=== PATIENT | female | born 1995 | race Two or more races ===

== ENCOUNTER 2022-09-13 08:06 | Outpatient (CLI) | payer OTHER | END 2022-09-13 09:15 | disposition home or self-care (01) | LOC: PRENATAL 08:06 | PROVIDERS: ATTEND Obstetrics & Gynecology Maternal & Fetal Medicine | DX: O36.80X0 Pregnancy with inconclusive fetal viability, not applicable or unspecified (principal); Z88.8 Allergy status to other drugs, medicaments and biological substances; Z3A.09 9 weeks gestation of pregnancy ==

== ENCOUNTER 2022-10-04 14:07 | Outpatient (CLI) | payer OTHER | END 2022-10-04 15:15 | disposition home or self-care (01) | LOC: PRENATAL 14:07 | PROVIDERS: ATTEND Obstetrics & Gynecology Maternal & Fetal Medicine | DX: O36.80X0 Pregnancy with inconclusive fetal viability, not applicable or unspecified (principal); Z3A.12 12 weeks gestation of pregnancy ==

== ENCOUNTER 2022-11-29 08:05 | Outpatient (CLI) | payer OTHER | END 2022-11-29 09:45 | disposition home or self-care (01) | LOC: PRENATAL 08:05 | PROVIDERS: ATTEND Obstetrics & Gynecology Maternal & Fetal Medicine | DX: O35.9XX0 Maternal care for (suspected) fetal abnormality and damage, unspecified, not applicable or unspecified (principal); O44.00 Complete placenta previa NOS or without hemorrhage, unspecified trimester; Z3A.20 20 weeks gestation of pregnancy ==

== ENCOUNTER 2022-12-03 13:13 | Emergency (ER) | payer OTHER ==
[~2022-12-03] VITALS: Ht 149.9 cm; Wt 55.3 kg
[2022-12-03] MEDS ORDERED: FOLIC ACID1 MG (13:23)
[2022-12-03] MEDS ORDERED: ECOTRIN81 MG (13:23)
[2022-12-03] MEDS ORDERED: PLAQUENIL (13:25)
[2022-12-03] MEDS ORDERED: PRENA1 TRUE CO1 EACH (13:26)
== END 2022-12-03 19:10 | disposition home or self-care (01) ==
LOC: ER 13:13
DX: O99.612 Diseases of the digestive system complicating pregnancy, second trimester (principal); K92.89 Other specified diseases of the digestive system; Z3A.21 21 weeks gestation of pregnancy; K52.9 Noninfective gastroenteritis and colitis, unspecified; E86.0 Dehydration; Z88.8 Allergy status to other drugs, medicaments and biological substances

== ENCOUNTER 2023-01-27 08:08 | Outpatient (CLI) | payer OTHER ==
[~2023-01-27 08:08] MED LIST: ECOTRIN81 MG; FOLIC ACID1 MG; PLAQUENIL; PRENA1 TRUE CO1 EACH
== END 2023-01-27 09:08 | disposition home or self-care (01) ==
LOC: PRENATAL 08:08
PROVIDERS: ATTEND Obstetrics & Gynecology Maternal & Fetal Medicine
DX: O26.849 Uterine size-date discrepancy, unspecified trimester (principal); O44.00 Complete placenta previa NOS or without hemorrhage, unspecified trimester; Z3A.28 28 weeks gestation of pregnancy

== ENCOUNTER 2023-02-21 10:36 | Outpatient (CLI) | payer OTHER ==
[~2023-02-21 10:36] MED LIST changes: +ADULT LOW DOSE81 M1 PO; +DIALYVITE 800-1 EACH PO; +FERROUS SULFAT325 MG PO; +PLAQUENIL PO; +PRENATAL + DHA1 EAC1 PO
== END 2023-02-21 11:26 | disposition home or self-care (01) ==
LOC: PRENATAL 10:36
PROVIDERS: ATTEND Obstetrics & Gynecology Maternal & Fetal Medicine
DX: O26.849 Uterine size-date discrepancy, unspecified trimester (principal); O36.8199 Decreased fetal movements, unspecified trimester, other fetus; Z3A.32 32 weeks gestation of pregnancy

== ENCOUNTER 2023-03-21 09:41 | Outpatient (CLI) | payer OTHER | END 2023-03-21 10:45 | disposition home or self-care (01) | LOC: PRENATAL 09:41 | PROVIDERS: ATTEND Obstetrics & Gynecology Maternal & Fetal Medicine | DX: O26.849 Uterine size-date discrepancy, unspecified trimester (principal); O36.8199 Decreased fetal movements, unspecified trimester, other fetus; Z3A.36 36 weeks gestation of pregnancy ==

== ENCOUNTER 2023-04-05 13:15 | Inpatient (IN) | payer OTHER ==
[~2023-04-05] VITALS: Ht 149.9 cm; Wt 66.7 kg
[2023-04-13] MEDS ORDERED: PLAQUENIL PO (03:54)
[2023-04-13] MEDS ORDERED: PRENATAL TABLE1 EAC1 PO (03:56)
[2023-04-13] MEDS ORDERED: IRON236 MG PO (03:57)
[2023-04-13] MEDS ORDERED: HYDROXYCHLOROQ200 MG PO (03:58)
[2023-04-13] MEDS ORDERED: FOLIC ACID20 MG PO (03:58)
== END 2023-04-15 13:01 | disposition home or self-care (01) | DRG 807 ==
LOC: OB/GYN 04-13 01:12 → LDR 04-13 01:12 → OB/GYN 04-13 15:19 → SURG 04-15 13:15
PROVIDERS: ADMIT Specialist; ATTEND Specialist
PROC: 10E0XZZ Delivery of Products of Conception, External Approach (ICD-10-PCS; principal; 2023-04-13)
PROC: 0HQ9XZZ Repair Perineum Skin, External Approach (ICD-10-PCS; 2023-04-13)
PROC: 4A1HXCZ Monitoring of Products of Conception, Cardiac Rate, External Approach (ICD-10-PCS; 2023-04-13)
DX: O70.0 First degree perineal laceration during delivery (principal); Z37.0 Single live birth; O75.89 Other specified complications of labor and delivery; Z3A.39 39 weeks gestation of pregnancy; Z20.822 Contact with and (suspected) exposure to COVID-19; M32.8 Other forms of systemic lupus erythematosus; O99.02 Anemia complicating childbirth; D64.9 Anemia, unspecified